=== PATIENT | female | born 1955 | race Caucasian/White ===

== ENCOUNTER → 2017-01-08 | Outpatient (CLI) | payer BC ==
[~2017-01-08] MED LIST: OMEP20CA6 PO; SCR1T1 PO
--- NOTE | 2017-01-08 19:11 | Diagnostic Imaging Report ---
INDICATION: Leg pain and numbness. FINDINGS: There is mild degenerative leftward curvature of the lumbar spine. The vertebral body heights are well-maintained. There is no spondylolysis or spondylolisthesis. No fractures are identified. IMPRESSION: Mild left convexity lumbar curvature, otherwise unremarkable. Dictated by: Dictated on workstation # [id number]
== END ==
LOC: RAD 18:15
PROVIDERS: ATTEND Nurse Practitioner Family
DX: M79.605 Pain in left leg (principal)
CPT/HCPCS: 72100

== ENCOUNTER → 2017-01-09 | Outpatient (CLI) | payer BC ==
--- NOTE | 2017-01-09 18:42 | Diagnostic Imaging Report ---
INDICATION: Left leg pain and numbness. 3 views were obtained. FINDINGS: The sacrum is intact. The SI joints are unremarkable. There is no sclerosis or erosions. There is no fracture. IMPRESSION: Unremarkable sacrum and SI joints. Dictated by: Dictated on workstation # [id number]
== END ==
LOC: RAD 17:55
PROVIDERS: ATTEND Nurse Practitioner Family
DX: M79.605 Pain in left leg (principal)
CPT/HCPCS: 72202

== ENCOUNTER → 2021-01-27 | Outpatient (CLI) | payer OTHER ==
--- NOTE | 2021-01-28 09:06 | Diagnostic Imaging Report ---
INDICATION: Routine screening. COMPARISON: No prior mammograms are available for comparison. TECHNIQUE: 2D and 3D bilateral screening mammography was performed with CAD. FINDINGS: Both breasts are heterogeneously dense, limiting the sensitivity of mammography. No mass or malignant appearing microcalcifications are seen. The axillae are unremarkable. IMPRESSION: No mammographic features suspicious for malignancy are identified. ACR BI-RADS Category 1: Negative. Result letter will be mailed to the patient. Note: At least 10% of breast cancer is not imaged by mammography. Dictated by: Dictated on workstation # [id number]
== END ==
LOC: RAD 14:05
PROVIDERS: ATTEND Nurse Practitioner
DX: Z12.31 Encounter for screening mammogram for malignant neoplasm of breast (principal)
CPT/HCPCS: 77063; 77067